=== PATIENT | female | born 1990 | race Two or more races ===

== ENCOUNTER 2023-05-06 08:06 | Day surgery (SDC) | payer BC ==
[~2023-05-06 08:06] MED LIST: Scopolamine 1.5 MG Transdermal Patch TOP ONE
[2023-05-06] MEDS ORDERED: Lactated Ringers 1,000 ML IV SCH (08:30)
[2023-05-06] MEDS ORDERED: Ondansetron 4 MG/2 ML SDV IVPUSH PRN (08:36)
[2023-05-06] MEDS ORDERED: HYDROmorphone 1 MG/ML Syringe IVPUSH PRN (08:36)
[2023-05-06] MEDS ORDERED: Naloxone 0.4 MG/ML SDV IVPUSH PRN (08:36)
[2023-05-06] MEDS ORDERED: Albuterol 0.083% 2.5 MG/3 ML Neb Soln NEB PRN (08:36)
[2023-05-06] MEDS ORDERED: Metoclopramide 10 MG/2 ML SDV IVPUSH PRN (08:36)
[2023-05-06] MEDS ORDERED: fentaNYL 50 MCG/ML SDV IVPUSH PRN (08:36)
[2023-05-06] MEDS ORDERED: Morphine 2 MG/ML SYRINGE IVPUSH PRN (08:36)
[2023-05-06] MEDS ORDERED: droPERidol 5 MG/2 ML SDV IVPUSH PRN (08:36)
[2023-05-06] MEDS ORDERED: propofoL 50 ML ONE (09:11)
[2023-05-06] MEDS ORDERED: Magnesium Sulfate (4.06 MEQ/ML) 5 GM/10 ML SDV ONE (09:12)
[2023-05-06] MEDS ORDERED: Lidocaine 2% 100 MG/5 ML Syringe ONE ×2 (09:12)
[2023-05-06] MEDS ORDERED: fentaNYL 100 MCG/2 ML SDV ONE (09:12)
[2023-05-06] MEDS ORDERED: Metoclopramide 10 MG/2 ML SDV ONE ×2 (09:13→10:27)
[2023-05-06] MEDS ORDERED: Ondansetron 4 MG/2 ML SDV ONE ×2 (09:13→10:23)
[2023-05-06] MEDS ORDERED: Midazolam 1 MG/ML 2 ML SDV ONE (09:50)
[2023-05-06] MEDS ORDERED: Methylene Blue 1% 10 ML SDV ONE (10:09)
[2023-05-06] MEDS ORDERED: Rocuronium Bromide 50 MG/5 ML Syringe ONE (10:22)
[2023-05-06] MEDS ORDERED: Ketorolac 30 MG/ML SDV ONE (10:22)
[2023-05-06] MEDS ORDERED: Sugammadex Sodium 200 MG/2 ML VIAL ONE (10:23)
[2023-05-06] MEDS ORDERED: Morphine 10 MG/ML SDV ONE (10:26)
[2023-05-06] MEDS ORDERED: Dexamethasone 4 MG/ML 5 ML MDV ONE (10:35)
== END 2023-05-06 12:15 | disposition home or self-care (01) ==
LOC: MW.SDS 08:06
PROVIDERS: ATTEND Obstetrics & Gynecology
DX: N97.9 Female infertility, unspecified (principal); N73.9 Female pelvic inflammatory disease, unspecified; N93.8 Other specified abnormal uterine and vaginal bleeding; F41.9 Anxiety disorder, unspecified; E66.9 Obesity, unspecified; N92.0 Excessive and frequent menstruation with regular cycle; F17.290 Nicotine dependence, other tobacco product, uncomplicated; Z91.011 Allergy to milk products; Z79.899 Other long term (current) drug therapy; Z87.01 Personal history of pneumonia (recurrent); Z68.33 Body mass index [BMI] 33.0-33.9, adult
CPT/HCPCS: 49320; 58555; A9270; J0131; J1100; J1885; J2250; J2270; J2405; J2704; J2765; J3010; J3475; J3490; J7030; J7120; Q9968

== ENCOUNTER 2024-08-06 00:14 | Emergency (ER) | payer BC ==
[2024-08-06 00:51] LABS: APPEARANCE,URINE SLT CLOUDY; BILIRUBIN,URINE NEGATIVE (NEGATIVE); COLOR,URINE YELLOW; GLUCOSE,URINE NEGATIVE (NEGATIVE); KETONES,URINE 15 mg/dL (NEGATIVE); LEUKOCYTE ESTERASE,URINE NEGATIVE (NEGATIVE); NITRITE,URINE NEGATIVE (NEGATIVE); OCCULT BLOOD,URINE NEGATIVE (NEGATIVE); PROTEIN,URINE NEGATIVE (NEGATIVE); UROBILINOGEN,URINE 0.2 EU/dL (<2.0)
[2024-08-06 01:25] LABS: BACTERIA,URINE FEW (NEGATIVE); EPITHELIAL CELLS,URINE FEW (NONE-FEW); RBC,URINE 0-2 (0-2/HPF); WBC,URINE 0-3 (0-5/HPF)
[2024-08-06 02:08] LABS: BASOPHILS ABSOLUTE AUTO 0.03 K/uL (0.00-0.20); BASOPHILS PERCENT AUTO 0.3 % (0.0-1.0); EOSINOPHILS ABSOLUTE AUTO 0.05 K/uL (0.00-0.45); EOSINOPHILS PERCENT AUTO 0.4 % (0.0-6.0); HEMATOCRIT 32.8 % (37.0-47.0); HEMOGLOBIN 10.4 g/dL (12.0-16.0); IMMATURE GRAN ABSOLUTE AUTO 0.03 K/uL (0.00-0.05); IMMATURE GRAN PERCENT AUTO 0.3 % (0.0-0.4); LYMPHOCYTES ABSOLUTE AUTO 1.74 K/uL (1.00-4.80); LYMPHOCYTES PERCENT AUTO 14.5 % (24.0-44.0); MEAN CORPUSCULAR HGB CONC 31.7 g/dL (32.0-36.0); MEAN CORPUSCULAR VOLUME 75.6 fL (83.0-99.0); MEAN PLATELET VOLUME 11.7 fL (9.4-12.3); MONOCYTES ABSOLUTE AUTO 0.79 K/uL (0.00-0.80); MONOCYTES PERCENT AUTO 6.6 % (0.0-8.0); NEUTROPHILS ABSOLUTE AUTO 9.35 K/uL (1.80-7.70); NEUTROPHILS PERCENT AUTO 77.9 % (41.0-71.0); PLATELET COUNT,PLT 318 K/uL (150-400); RED BLOOD CELL COUNT 4.34 M/uL (4.10-5.30); WHITE BLOOD CELL COUNT,WBC 11.99 K/uL (3.9-11.3)
[2024-08-06 02:38] LABS: A/G RATIO 1.2 (0.9-1.6); ALBUMIN 4.2 g/dL (3.4-5.0); BILIRUBIN TOTAL 0.3 mg/dL (0.2-1.0); CALCIUM 9.3 mg/dL (8.5-10.1); CARBON DIOXIDE,CO2 23.4 mmol/L (21.0-32.0); CREATININE 0.9 mg/dL (0.6-1.0); EST CRCL DRUG DOSING (CG) 77.49 mL/min; POTASSIUM,K 3.8 mmol/L (3.5-5.1); PROTEIN TOTAL,TP 7.8 g/dL (6.4-8.2)
[2024-08-06] MEDS: Iopamidol 755 MG/ML 500 ML Multipack Bottle IVPUSH ONE (02:51)
== END 2024-08-06 06:14 | disposition home or self-care (01) ==
LOC: MW.ED 00:14
DX: N83.201 Unspecified ovarian cyst, right side (principal); D25.9 Leiomyoma of uterus, unspecified; N70.11 Chronic salpingitis; Z75.8 Other problems related to medical facilities and other health care; Z79.899 Other long term (current) drug therapy; Z91.011 Allergy to milk products
CPT/HCPCS: 36415; 74177; 76830; 80053; 81001; 81025; 83690; 85025; 99284; Q9967